=== PATIENT | male | born 1980 | race Caucasian/White ===

== ENCOUNTER 2017-05-03 19:37 | Emergency (ER) | payer OTHER ==
[~2017-05-03] VITALS: Ht 182.9 cm; Wt 84.1 kg
[2017-05-03 19:41] VITALS: BP 138/80; PULSE 69; RESP 16; O2SAT 96
--- NOTE | 2017-05-03 19:49 | ED.REPORT ---
HPI-Extremity Problem Lower Date of Service May 03, 2017 ED Provider: Panchito Casillas MD Pt is a 37 year old male with no pertinent medical history presents to the ED complaining of a right foot laceration. The pt was on a standing paddle board today when the board hit a rock, cutting his foot. The pt's tetanus is up to date. He denies any numbness or tingling. No other injuries. Nursing Notes Stated Complaint: LACERATION ON FOOT Chief Complaint: Extremity Trauma Nursing Notes Reviewed: Yes Allergies: Coded Allergies: No Known Allergies (Unverified , 05/03/17) General Time Seen by MD: 19:49 Chief Complaint Foot injury right Hx Obtained From: Patient Arrived By: Walk-in Onset Occurred: 1 - 4 hours ago Symptom Duration: Since onset Recent Healthcare: No recent hospitalization Similar Sx Previous: No Past Medical History Past Medical History none reported Past Surgical History none reported Smoking History Unknown if Ever Smoker Social History Other Social History: Good social support Ambulatory Status Independent Review of Systems Review of Systems Note: laceration Musculoskeletal: Reports: Extremity pain, Denies: Back pain, Neck pain Skin: Denies Rash Complete sys rev & neg: except as marked. Respiratory: Denies: Non-productive cough, Shortness of breath Cardiovascular: Denies: Chest pain GI: Denies: Abdominal pain, Vomiting Physical Exam Initial Vital Signs Vital Signs (First) Date Time Temp Pulse Resp B/P Pulse Ox O2 Delivery O2 Flow Rate FiO2 05/03/17 19:41 36.2 69 16 138/80 96 Initial VS: Reviewed Lower Extremity / Pelvis / MS: Atraumatic, Full range of motion Ankle / Foot: Neurologic intact, Vascular intact 3 to 4 cm complicated laceration on the dorsum of the right foot to the base of the great toe foreign body present no signs of trauma elsewhere General/Constitutional: Awake, Alert Respiratory / Chest: Atraumatic, Breath sounds NL, Breath sounds = bilat, No respiratory distress Cardiovascular: Heart rate NL, Regular rhythm, Heart sounds NL Skin: Color NL, No rash, Warm, Dry Neurologic: Oriented X3, Speech NL, No motor deficits, No sensory deficits Head / Eyes: Atraumatic, Normocephalic, PERRL, EOMI ENT: Atraumatic, Airway patent, Mucous membranes moist Neck: Atraumatic, Supple, Full range of motion Abdomen: Atraumatic, Soft, Non-tender Back: Atraumatic, Full range of motion Upper Extremity / MS: Atraumatic, Full range of motion Psychiatric: Affect NL, Mood NL Procedures Procedure Notes: wound was very dirty, extensively washed and manuelly removed small pieces of dirt and rock. Laceration is very irregular with multiple flaps. Good alignment acheived. Laceration Management Time: 20:00 Procedure Performed by: Allied health pract Consent / Setup / Site Prep: Informed consent provided, Consent from patient , Hand hygiene observed, Stand sterile technique Location of Wound: plantar aspect of foot Wound Length: 3 cm Local Anesthesia: Lidocaine 1%, 5cc, 27g needle Digital Block: No Wound Preparation: Normal saline Debridement: Yes, Moderate Irrigation: Copious Foreign Body Explore / Removal: Explored for foreign body, Removed multiple Repair Skin: ___ O (5.), Nylon # Sutures - Skin: 6 Closure Layers: 1 Suture Technique: Simple Post-Procedure / Complications: Antibiotic oint applied, Dressing applied, No complications, Condition improved, Tolerated procedure well, Patient stable Re-Eval/Medical Decision Med Decision/Clinical Course Pt is a 37 year old male with no pertinent medical history presents to the ED complaining of a right foot laceration. The pt was on a standing paddle board today when the board hit a rock, cutting his foot. The pt's tetanus is up to date. He denies any numbness or tingling. No other injuries. Patient neurovascularly intact in the affected extremity. Wound copiously irrigated and foreign bodies removed. Laceration repaired as documented above. Return for any signs of infection, swelling, redness, warmth or fevers. Prior to discharge follow-up and return precautions were reviewed in detail with the patient who verbalized understanding and agreement with the plan. The patient was discharged in stable condition. Re-Evaluation/Progress : Time of Eval: 20:00 Patient Status: Condition improved Re-Evaluation/Progress Note: Pt rechecked and laceration management is performed. The diagnosis and plan for discharge are discussed. The pt understands and agrees with the plan. All questions are addressed at this time. Counseled Regarding: Diagnosis, Need for follow-up, When/why to return to ED Discharge & Departure Impression: Primary Impression: Laceration Additional Impression: Left foot pain Disposition: Home Discharge Condition All VS Reviewed: Yes Condition: Stable Patient Instructions: Laceration (ED) Additional Instructions: Thank you for seeking care at the emergency room. Our primary goal today in the Emergency Department was to evaluate you for any life-threatening conditions. Your evaluation was reassuring. Keep the wound clean and dry. The stitches can be removed in 7-10 days. You should follow-up with your primary doctor in the next week. You should return to the Emergency Department immediately if you develop redness , swelling, discharge or any other concerning signs or symptoms. Thank you for letting us partake in your care today. Referrals: Mariano Reynaga DO (PCP) EDSupervising Provider for APC: Panchito Casillas MD Scribe Attestation Portions of this note were transcribed by Cliff Zuluaga. I, Dr. Casillas personally performed the history, physical exam and medical decision-making; I reviewed and confirmed the accuracy of the information in the transcribed note. copies to: Mariano Reynaga Beck O MD May 03, 2017 19:49 Marta Rush May 03, 2017 20:35 CLIFF ZULUAGA May 03, 2017 20:37
== END 2017-05-03 20:43 | disposition home or self-care (01) ==
LOC: SED 19:37
DX: S91.311A Laceration without foreign body, right foot, initial encounter (principal); M79.672 Pain in left foot; W45.8XXA Other foreign body or object entering through skin, initial encounter; Y93.89 Activity, other specified; Y92.828 Other wilderness area as the place of occurrence of the external cause; Y99.8 Other external cause status